=== PATIENT | female | born 2005 | race Caucasian/White ===

== ENCOUNTER 2023-03-20 01:11 | Emergency (ER) | payer OTHER ==
[~2023-03-20] VITALS: Ht 160 cm; Wt 56.7 kg
[2023-03-20] MEDS ORDERED: LIDOCAINE/EPI MPF 1%1:200000 30 ML VIAL INJ ONE (01:30)
[2023-03-20 01:37] VITALS: PULSE 82; RESP 18; TEMP 97.9; O2SAT 97
[2023-03-20] MEDS ORDERED: DIPHTH,PERTUSS(ACELL),TET VAC 0.5 ML VIAL (Tdap) I.M. ONE (02:15)
[2023-03-20] MEDS ORDERED: BACITRACIN 1 GM OINT TP ONE (02:30)
[2023-03-20 03:08] VITALS: BP_SYST 116; PULSE 82; RESP 18; TEMP 97.9; O2SAT 97
== END 2023-03-20 03:02 | disposition home or self-care (01) ==
LOC: SED 01:11
DX: S61.213A Laceration without foreign body of left middle finger without damage to nail, initial encounter (principal); Z79.899 Other long term (current) drug therapy; X78.9XXA Intentional self-harm by unspecified sharp object, initial encounter; Y93.89 Activity, other specified; Y92.89 Other specified places as the place of occurrence of the external cause; Y99.8 Other external cause status
CPT/HCPCS: 90715; 99283